=== PATIENT | female | born 1990 | race Caucasian/White ===

== ENCOUNTER 2025-06-20 12:34 | Emergency (ER) | payer OTHER ==
[~2025-06-20] VITALS: Ht 157.5 cm; Wt 80.0 kg
[2025-06-20] MEDS: ACETAMINOPHEN 500 MG TABLET PO ONE (13:31)
[2025-06-20] MEDS: LIDOCAINE 1% 10 ML VIAL SQ ONE (14:41)
[2025-06-20 18:58] VITALS: BP 117/82; PULSE 85; RESP 14; TEMP 98.105288; O2SAT 96
[2025-06-20] MEDS: OxyCODONE HCL 5 MG IR TABLET PO ONE (19:04)
== END 2025-06-20 19:08 ==
LOC: EMS 12:52
DX: S63.653A Sprain of metacarpophalangeal joint of left middle finger, initial encounter (principal); J45.909 Unspecified asthma, uncomplicated; Z88.6 Allergy status to analgesic agent; Z91.040 Latex allergy status; Y04.0XXA Assault by unarmed brawl or fight, initial encounter; Y93.89 Activity, other specified; Y92.89 Other specified places as the place of occurrence of the external cause; Y99.8 Other external cause status
CPT/HCPCS: 99284; 73110; 73140; 29130; 96372; J3490